=== PATIENT | male | born 1970 | race Caucasian/White ===

== ENCOUNTER 2018-05-11 08:12 | Inpatient (IN) | payer BC, OTHER ==
[2018-05-11] VITALS (17 sets, daily range): BP systolic 103–140; BP diastolic 55–79
[~2018-05-11] VITALS: Ht 170.2 cm; Wt 72.4 kg
[2018-05-11] MEDS ORDERED: FUROSEMIDE 20 MG/2 ML VIAL ONE (08:18)
[2018-05-11] MEDS ORDERED: methylPREDNISolone SOD SUCC 125 MG/2 ML VL ONE (08:22)
[2018-05-11] MEDS ORDERED: methylPREDNISolone SOD SUCC 125 MG/2 ML VL IV ONE (08:30)
[2018-05-11] MEDS ORDERED: FUROSEMIDE 20 MG/2 ML VIAL IV ONE (08:30)
[2018-05-11] MEDS ORDERED: AZITHROMYCIN 500MG/ 250ML 250 ML IV ONE (09:00)
[2018-05-11] MEDS ORDERED: cefTRIAXone 1GM/10ml IVPUSH 10 ML IV ONE (09:00)
[2018-05-11 09:38] LABS: Basophils # (auto) 0 uL; Eosinophils # (auto) 0 uL; Eosinophils % (auto) 0.1 % (0.0-7.0); Hemoglobin 11.5 g/dL (13.5-17.5); Lymphocytes # (auto) 0.2 uL; Lymphocytes % (auto) 1.2 % (10.0-50.0); Mean Corpuscular Hemoglobin 31.8 pg (28.0-32.0); Mean Corpuscular Volume 99.4 fL (80.0-100.0); Monocytes # (auto) 0.8 uL; Monocytes % (auto) 5.6 % (0.0-12.0); Neutrophils # (auto) 13.2 uL; Neutrophils % (auto) 93.1 % (37.0-80.0); Platelet Count (auto) 304 10^3/uL (140-450); Red Blood Cells 3.62 10^6/uL (4.5-5.90); Red Cell Distribution Width 17.7 % (11.8-14.3); White Blood Cell 14.1 10^3/uL (4.4-10.8)
[2018-05-11 10:00] LABS: Albumin 2.4 g/dL (3.4-5.0); BUN/Creatinine Ratio 42.4; Calcium 7.7 mg/dL (8.5-10.1); Magnesium 2.4 mg/dL (1.6-2.6); Potassium 4.8 mmol/L (3.5-5.1)
[2018-05-11 10:05] LABS: Urine Bacteria NONE SEEN /hpf (None Seen); Urine Blood Negative /uL (Negative); Urine Hyaline Cast FEW /lpf (0 - 2); Urine Mucus FEW (None Seen); Urine Specific Gravity 1.015 (1.001-1.035); Urine WBC 2 /hpf (0 - 3)
[2018-05-11 10:16] LABS: Bilirubin, Total 0.5 mg/dL (0.2-1.0); Total Protein 6.1 g/dL (6.4-8.2)
[2018-05-11] MEDS ORDERED: NITROGLYCERIN 0.4 MG SL TAB SL PRN (10:45)
[2018-05-11] MEDS ORDERED: VANCOMYCIN PER PHARMACY 0 MG IV SCH (10:45)
[2018-05-11] MEDS ORDERED: ACETAMINOPHEN 500 MG TAB PO PRN (10:45)
[2018-05-11] MEDS ORDERED: DEXTROSE (50%) 50ML SYRG IV PRN (10:45)
[2018-05-11] MEDS ORDERED: LORazepam 0.5 MG TAB PO PRN (10:45)
[2018-05-11] MEDS ORDERED: LACTULOSE 20Gm/30ML SOLN PO PRN (10:45)
[2018-05-11] MEDS ORDERED: ONDANSETRON HCL 4 MG/2 ML VIAL IV PRN (10:45)
[2018-05-11] MEDS ORDERED: HYDROcodone-ACET 5/325MG TAB PO PRN (10:45)
[2018-05-11] MEDS ORDERED: TEMAZEPAM 15 MG CAP PO PRN (10:45)
[2018-05-11] MEDS ORDERED: MORPHINE SULFATE 4 MG/ML SYR/VIAL IV PRN ×2 (10:45)
[2018-05-11] MEDS ORDERED: PIPERACILLIN-TAZOB 3.375GM 100 ML IV ONE (10:45)
[2018-05-11] MEDS: OSELTAMIVIR 75 MG CAP PO SCH ×2 (11:38→22:00)
[2018-05-11] MEDS ORDERED: VANCOMYCIN 1GM/250ML 250 ML IV ONE ×2 (12:00→12:37)
[2018-05-11] MEDS: IPRATROPIUM BROM 0.5 MG/2.5ML INH SOL NEB SCH ×2 (12:06→18:12)
[2018-05-11] MEDS: ALBUTEROL SULF 2.5 MG/0.5ML(0.5%) NEB SOLN NEB SCH ×2 (12:07→18:12)
[2018-05-11] MEDS: ACCU-CHEK COMFORT CURVE STRIP VI SCH ×2 (13:01→18:29)
[2018-05-11] MEDS: ALBUTEROL SULF 2.5 MG/0.5ML(0.5%) NEB SOLN NEB PRN (14:47)
[2018-05-11] MEDS: ENOXAPARIN SOD 60 MG/0.6 ML SYRINGE SC SCH (14:58)
[2018-05-11] MEDS ORDERED: methylPREDNISolone SOD SUCC 40 MG/ML VL IV ONE (15:00)
[2018-05-11] MEDS ORDERED: IOHEXOL 350 MG/ML 100ML IJ ONE (16:43)
[2018-05-11] MEDS: PIPERACILLIN-TAZOB 3.375GM 100 ML IV SCH (16:56)
[2018-05-11] MEDS ORDERED: ETOMIDATE (2MG/ML) 20ML VIAL IV ONE ×2 (19:06→20:00)
[2018-05-11] MEDS ORDERED: SUCCINYLCHOLINE CHLORIDE 20 MG/ML 10ML VIAL IV ONE ×2 (19:06→20:00)
[2018-05-11] MEDS ORDERED: MIDAZOLAM DRIP 50 mg/50mL 50 ML IV ONE (19:28)
[2018-05-11] MEDS: MIDAZOLAM DRIP 50 mg/50mL 50 ML IV SCH ×3 (19:30→22:17)
[2018-05-11] MEDS ORDERED: fentaNYL Drip 2500mCg/250mlNS 250 ML IV ONE (19:41)
[2018-05-11] MEDS: fentaNYL Drip 2500mCg/250mlNS 250 ML IV SCH ×2 (19:44→19:54)
[2018-05-11] MEDS ORDERED: PROPOFOL 100 ML IV ONE (19:59)
[2018-05-11] MEDS: PROPOFOL 100 ML IV SCH (20:27)
[2018-05-11] MEDS: GABAPENTIN 100 MG CAP PO SCH (22:00)
[2018-05-11] MEDS: methylPREDNISolone SOD SUCC 40 MG/ML VL IV SCH (22:56)
[2018-05-11] MEDS: VANCOMYCIN 1GM/250ML 250 ML IV SCH (22:56)
[2018-05-12] VITALS (106 sets, daily range): BP systolic 85–123; BP diastolic 45–72
[2018-05-12] MEDS: ALBUTEROL SULF 2.5 MG/0.5ML(0.5%) NEB SOLN NEB SCH ×4 (00:22→18:18)
[2018-05-12] MEDS: IPRATROPIUM BROM 0.5 MG/2.5ML INH SOL NEB SCH ×4 (00:22→18:18)
[2018-05-12 01:03] LABS: Basophils # (auto) 0 uL; Eosinophils # (auto) 0 uL; Hematocrit 28.6 % (41.0-53.0); Hemoglobin 9.5 g/dL (13.5-17.5); Lymphocytes # (auto) 0.1 uL; Lymphocytes % (auto) 1.5 % (10.0-50.0); Mean Corpuscular Hemoglobin 32.5 pg (28.0-32.0); Mean Corpuscular Hgb Conc. 33.1 g/dL (32.0-36.0); Mean Corpuscular Volume 98.2 fL (80.0-100.0); Monocytes # (auto) 0.4 uL; Monocytes % (auto) 4.9 % (0.0-12.0); Neutrophils # (auto) 7.7 uL; Neutrophils % (auto) 93.6 % (37.0-80.0); Platelet Count (auto) 255 10^3/uL (140-450); Red Blood Cells 2.91 10^6/uL (4.5-5.90); Red Cell Distribution Width 17.6 % (11.8-14.3); White Blood Cell 8.2 10^3/uL (4.4-10.8)
[2018-05-12 01:18] LABS: Calcium 6.7 mg/dL (8.5-10.1); Potassium 4.9 mmol/L (3.5-5.1)
[2018-05-12 01:20] LABS: BUN/Creatinine Ratio 54.8
[2018-05-12 01:23] LABS: Bilirubin, Total 0.4 mg/dL (0.2-1.0); Total Protein 4.7 g/dL (6.4-8.2)
[2018-05-12] MEDS ORDERED: BENZ1CAP24 PO (01:33)
[2018-05-12] MEDS ORDERED: GAB100C PO (01:33)
[2018-05-12] MEDS ORDERED: LIDO1PAD55 TOP (01:33)
[2018-05-12] MEDS: ACCU-CHEK COMFORT CURVE STRIP VI SCH ×4 (02:00→18:00)
[2018-05-12] MEDS: PROPOFOL 100 ML IV SCH ×4 (02:18→22:37)
[2018-05-12] MEDS: ENOXAPARIN SOD 60 MG/0.6 ML SYRINGE SC SCH ×3 (02:20→22:21)
[2018-05-12] MEDS: MIDAZOLAM DRIP 50 mg/50mL 50 ML IV SCH ×6 (02:20→23:22)
[2018-05-12] MEDS: PIPERACILLIN-TAZOB 3.375GM 100 ML IV SCH ×5 (02:20→22:47)
[2018-05-12] MEDS: GABAPENTIN 100 MG CAP PO SCH ×3 (06:00→22:22)
[2018-05-12] MEDS: VANCOMYCIN 1GM/250ML 250 ML IV SCH ×2 (08:19→17:52)
[2018-05-12] MEDS: methylPREDNISolone SOD SUCC 40 MG/ML VL IV SCH ×2 (09:36→22:21)
[2018-05-12] MEDS: AZITHROMYCIN 500MG/ 250ML 250 ML IV SCH (09:37)
[2018-05-12] MEDS ORDERED: PANTOPRAZOLE 40 MG TAB PO SCH (10:00)
[2018-05-12] MEDS: PANTOPRAZOLE 40 MG/10 ML VIAL IV SCH (12:54)
[2018-05-12] MEDS: fentaNYL Drip 2500mCg/250mlNS 250 ML IV SCH (18:48)
[2018-05-13] VITALS (106 sets, daily range): BP systolic 99–163; BP diastolic 60–98
[2018-05-13] MEDS: IPRATROPIUM BROM 0.5 MG/2.5ML INH SOL NEB SCH ×5 (00:06→23:44)
[2018-05-13] MEDS: ALBUTEROL SULF 2.5 MG/0.5ML(0.5%) NEB SOLN NEB SCH ×5 (00:06→23:44)
[2018-05-13] MEDS: ACCU-CHEK COMFORT CURVE STRIP VI SCH ×5 (01:08→23:49)
[2018-05-13] MEDS: VANCOMYCIN 1GM/250ML 250 ML IV SCH ×3 (03:04→18:16)
[2018-05-13] MEDS: MIDAZOLAM DRIP 50 mg/50mL 50 ML IV SCH ×5 (03:52→21:21)
[2018-05-13 04:36] LABS: Basophils # (auto) 0 uL; Eosinophils # (auto) 0 uL; Eosinophils % (auto) 0.1 % (0.0-7.0); Hematocrit 28.2 % (41.0-53.0); Hemoglobin 9.4 g/dL (13.5-17.5); Lymphocytes # (auto) 0.1 uL; Lymphocytes % (auto) 1.2 % (10.0-50.0); Mean Corpuscular Hemoglobin 32.7 pg (28.0-32.0); Mean Corpuscular Hgb Conc. 33.4 g/dL (32.0-36.0); Mean Corpuscular Volume 98.1 fL (80.0-100.0); Monocytes # (auto) 0.5 uL; Monocytes % (auto) 6.7 % (0.0-12.0); Neutrophils # (auto) 7.5 uL; Nucleated Red Blood Cells % 0.1 %; Platelet Count (auto) 274 10^3/uL (140-450); Red Blood Cells 2.87 10^6/uL (4.5-5.90); Red Cell Distribution Width 17.5 % (11.8-14.3); White Blood Cell 8.2 10^3/uL (4.4-10.8)
[2018-05-13 04:37] LABS: Anion Gap 8 (5-15); Blood Urea Nitrogen 26 mg/dL (7-18); Carbon Dioxide 29 mmol/L (21-32); Chloride 97 mmol/L (98-107); Glucose 174 mg/dL (74-106); Potassium 5.4 mmol/L (3.5-5.1); Sodium 134 mmol/L (136-145)
[2018-05-13 04:39] LABS: GFR African American 218 mL/min; GFR Non-African American 180 mL/min
[2018-05-13] MEDS: PIPERACILLIN-TAZOB 3.375GM 100 ML IV SCH ×4 (04:57→22:49)
[2018-05-13] MEDS: GABAPENTIN 100 MG CAP PO SCH ×3 (05:48→22:49)
[2018-05-13] MEDS: fentaNYL Drip 2500mCg/250mlNS 250 ML IV SCH ×2 (07:32→18:22)
[2018-05-13] MEDS: PROPOFOL 100 ML IV SCH (07:32)
[2018-05-13] MEDS ORDERED: CALCIUM CHL 100MG/ML 1,000 MG in D5W 5% 100 ML IV ONE (07:45)
[2018-05-13] MEDS ORDERED: SODIUM POLYSTYRENE SULF 15GM/60ML SUSP PO ONE (07:45)
[2018-05-13] MEDS: D5W/SOD CHLO 0.9% 1,000 ML IV SCH ×2 (08:33→17:30)
[2018-05-13] MEDS: AZITHROMYCIN 500MG/ 250ML 250 ML IV SCH (09:42)
[2018-05-13] MEDS: methylPREDNISolone SOD SUCC 40 MG/ML VL IV SCH ×2 (09:42→22:49)
[2018-05-13] MEDS: PANTOPRAZOLE 40 MG/10 ML VIAL IV SCH (09:42)
[2018-05-13] MEDS: ENOXAPARIN SOD 60 MG/0.6 ML SYRINGE SC SCH ×2 (10:00→23:39)
[2018-05-13 10:31] LABS: INR 0.97 (0.9-1.15); Prothrombin Time 10.4 sec (9.27-12.13)
[2018-05-13] MEDS ORDERED: DEXTROSE (50%) 50ML SYRG IV PRN (20:00)
[2018-05-14] VITALS (107 sets, daily range): BP systolic 101–161; BP diastolic 44–118
[2018-05-14] MEDS: D5W/SOD CHLO 0.9% 1,000 ML IV SCH ×3 (00:23→23:30)
[2018-05-14] MEDS: InsuLIN REG 1unit/0.01ml Soln (100units/ml) SC SCH ×4 (00:23→18:00)
[2018-05-14] MEDS: ALBUTEROL SULF 2.5 MG/0.5ML(0.5%) NEB SOLN NEB PRN (02:10)
[2018-05-14] MEDS: VANCOMYCIN 1GM/250ML 250 ML IV SCH ×3 (02:29→17:46)
[2018-05-14] MEDS: MIDAZOLAM DRIP 50 mg/50mL 50 ML IV SCH ×6 (02:30→22:29)
[2018-05-14 04:21] LABS: Hematocrit 28.8 % (41.0-53.0); Hemoglobin 9.5 g/dL (13.5-17.5); Mean Corpuscular Hemoglobin 32.6 pg (28.0-32.0); Mean Corpuscular Volume 98.7 fL (80.0-100.0); Platelet Count (auto) 265 10^3/uL (140-450); Red Blood Cells 2.92 10^6/uL (4.5-5.90); Red Cell Distribution Width 17.9 % (11.8-14.3); White Blood Cell 10.5 10^3/uL (4.4-10.8)
[2018-05-14 04:26] LABS: Band Neutrophils % (manual) 0; Basophils % (manual) 0 (0.0-2.0); Blast Cells 0; Eosinophils % (manual) 0 (0-7); Metamyelocytes % 0; Myelocytes % 0; Promyelocytes % 0; Reactive Lymphocytes 0
[2018-05-14 04:37] LABS: Calcium 6.8 mg/dL (8.5-10.1); Potassium 4.2 mmol/L (3.5-5.1)
[2018-05-14 04:40] LABS: BUN/Creatinine Ratio 42.9
[2018-05-14 05:03] LABS: Lymphocytes % (manual) 1 (10.0-50.0); Monocytes % (manual) 4 (0-12)
[2018-05-14] MEDS: PIPERACILLIN-TAZOB 3.375GM 100 ML IV SCH ×4 (05:38→22:38)
[2018-05-14] MEDS: GABAPENTIN 100 MG CAP PO SCH ×3 (05:38→21:28)
[2018-05-14] MEDS: ACCU-CHEK COMFORT CURVE STRIP VI SCH ×5 (06:00→17:48)
[2018-05-14] MEDS: fentaNYL Drip 2500mCg/250mlNS 250 ML IV SCH ×2 (06:24→17:47)
[2018-05-14] MEDS: IPRATROPIUM BROM 0.5 MG/2.5ML INH SOL NEB SCH ×3 (06:31→18:31)
[2018-05-14] MEDS: ALBUTEROL SULF 2.5 MG/0.5ML(0.5%) NEB SOLN NEB SCH ×3 (06:31→18:31)
[2018-05-14] MEDS ORDERED: LIDOCAINE 2% (LOCAL ANESTH.) PF 5ml SDV ONE (08:26)
[2018-05-14] MEDS: ENOXAPARIN SOD 60 MG/0.6 ML SYRINGE SC SCH ×2 (09:48→21:27)
[2018-05-14] MEDS: PANTOPRAZOLE 40 MG/10 ML VIAL IV SCH (09:48)
[2018-05-14] MEDS: methylPREDNISolone SOD SUCC 40 MG/ML VL IV SCH ×2 (09:48→21:27)
[2018-05-14] MEDS: AZITHROMYCIN 500MG/ 250ML 250 ML IV SCH (11:01)
[2018-05-14] MEDS: PROPOFOL 100 ML IV SCH (15:32)
[2018-05-14] MEDS ORDERED: Jevity 1.2 Cal/Fiber 1 Liter GT SCH (16:45)
[2018-05-15] VITALS (106 sets, daily range): BP systolic 77–173; BP diastolic 50–117
[2018-05-15] MEDS: ALBUTEROL SULF 2.5 MG/0.5ML(0.5%) NEB SOLN NEB SCH ×4 (00:11→19:10)
[2018-05-15] MEDS: IPRATROPIUM BROM 0.5 MG/2.5ML INH SOL NEB SCH ×4 (00:11→19:10)
[2018-05-15] MEDS: ACCU-CHEK COMFORT CURVE STRIP VI SCH ×4 (00:14→18:00)
[2018-05-15] MEDS: InsuLIN REG 1unit/0.01ml Soln (100units/ml) SC SCH ×4 (00:14→18:00)
[2018-05-15] MEDS: VANCOMYCIN 1GM/250ML 250 ML IV SCH ×3 (01:45→17:29)
[2018-05-15] MEDS: MIDAZOLAM DRIP 50 mg/50mL 50 ML IV SCH ×4 (01:46→22:34)
[2018-05-15] MEDS: PROPOFOL 100 ML IV SCH ×2 (01:59→10:08)
[2018-05-15] MEDS: D5W/SOD CHLO 0.9% 1,000 ML IV SCH (02:00)
[2018-05-15 04:15] LABS: Basophils # (auto) 0 uL; Eosinophils # (auto) 0 uL; Hematocrit 28.2 % (41.0-53.0); Hemoglobin 9.5 g/dL (13.5-17.5); Lymphocytes # (auto) 0.1 uL; Lymphocytes % (auto) 1.5 % (10.0-50.0); Mean Corpuscular Hgb Conc. 33.7 g/dL (32.0-36.0); Monocytes # (auto) 0.6 uL; Monocytes % (auto) 7.3 % (0.0-12.0); Neutrophils # (auto) 7.4 uL; Neutrophils % (auto) 91.2 % (37.0-80.0); Platelet Count (auto) 237 10^3/uL (140-450); Red Blood Cells 2.87 10^6/uL (4.5-5.90); White Blood Cell 8.1 10^3/uL (4.4-10.8)
[2018-05-15 04:30] LABS: BUN/Creatinine Ratio 25.6; Calcium 6.3 mg/dL (8.5-10.1); Potassium 3.9 mmol/L (3.5-5.1)
[2018-05-15] MEDS: PIPERACILLIN-TAZOB 3.375GM 100 ML IV SCH ×4 (05:00→22:34)
[2018-05-15] MEDS: GABAPENTIN 100 MG CAP PO SCH ×3 (06:33→21:30)
[2018-05-15] MEDS ORDERED: CALCIUM CHL 100MG/ML 1,000 MG in D5W 5% 100 ML IV ONE (08:30)
[2018-05-15] MEDS ORDERED: IOHEXOL 350 MG/ML 100ML IJ ONE (09:12)
[2018-05-15] MEDS: PANTOPRAZOLE 40 MG/10 ML VIAL IV SCH (10:43)
[2018-05-15] MEDS: ENOXAPARIN SOD 60 MG/0.6 ML SYRINGE SC SCH ×2 (10:43→21:30)
[2018-05-15] MEDS: AZITHROMYCIN 500MG/ 250ML 250 ML IV SCH (10:59)
[2018-05-15] MEDS: methylPREDNISolone SOD SUCC 40 MG/ML VL IV SCH ×2 (10:59→21:30)
[2018-05-15] MEDS ORDERED: FUROSEMIDE 40 MG/4 ML VIAL IV ONE (15:15)
[2018-05-15] MEDS: fentaNYL Drip 2500mCg/250mlNS 250 ML IV SCH (17:11)
[2018-05-16] VITALS (104 sets, daily range): BP systolic 83–172; BP diastolic 45–115
[2018-05-16] MEDS: IPRATROPIUM BROM 0.5 MG/2.5ML INH SOL NEB SCH ×4 (00:11→18:08)
[2018-05-16] MEDS: ALBUTEROL SULF 2.5 MG/0.5ML(0.5%) NEB SOLN NEB SCH ×4 (00:11→18:08)
[2018-05-16] MEDS: PROPOFOL 100 ML IV SCH (01:00)
[2018-05-16] MEDS: VANCOMYCIN 1GM/250ML 250 ML IV SCH ×3 (01:31→17:35)
[2018-05-16] MEDS: MIDAZOLAM DRIP 50 mg/50mL 50 ML IV SCH ×4 (03:57→21:53)
[2018-05-16] MEDS: fentaNYL Drip 2500mCg/250mlNS 250 ML IV SCH ×2 (03:57→16:50)
[2018-05-16 04:02] LABS: Basophils # (auto) 0 uL; Eosinophils # (auto) 0 uL; Eosinophils % (auto) 0.1 % (0.0-7.0); Hematocrit 25.3 % (41.0-53.0); Hemoglobin 8.5 g/dL (13.5-17.5); Lymphocytes # (auto) 0.1 uL; Mean Corpuscular Hemoglobin 32.6 pg (28.0-32.0); Mean Corpuscular Hgb Conc. 33.6 g/dL (32.0-36.0); Mean Corpuscular Volume 97.3 fL (80.0-100.0); Monocytes # (auto) 0.4 uL; Monocytes % (auto) 6.9 % (0.0-12.0); Neutrophils # (auto) 5.5 uL; Nucleated Red Blood Cells % 0.1 %; Platelet Count (auto) 217 10^3/uL (140-450); Red Cell Distribution Width 17.3 % (11.8-14.3); White Blood Cell 6.1 10^3/uL (4.4-10.8)
[2018-05-16 04:27] LABS: Calcium 6.6 mg/dL (8.5-10.1); Potassium 4.1 mmol/L (3.5-5.1)
[2018-05-16 04:29] LABS: BUN/Creatinine Ratio 32.4
[2018-05-16] MEDS: PIPERACILLIN-TAZOB 3.375GM 100 ML IV SCH ×4 (05:10→23:00)
[2018-05-16] MEDS: InsuLIN REG 1unit/0.01ml Soln (100units/ml) SC SCH ×4 (05:25→17:35)
[2018-05-16] MEDS: ACCU-CHEK COMFORT CURVE STRIP VI SCH ×4 (05:25→17:36)
[2018-05-16] MEDS: GABAPENTIN 100 MG CAP PO SCH ×3 (05:25→21:51)
[2018-05-16] MEDS ORDERED: ALBUMIN 25% 100 ML IV ONE (07:00)
[2018-05-16] MEDS ORDERED: ALBUMIN 25% 100 ML IV SCH (07:45)
[2018-05-16] MEDS: D5W/SOD CHLO 0.9% 1,000 ML IV SCH ×2 (08:15→21:05)
[2018-05-16] MEDS: ALBUMIN 25% 100 ML IV SCH ×3 (08:50→21:00)
[2018-05-16] MEDS: PANTOPRAZOLE 40 MG/10 ML VIAL IV SCH (09:54)
[2018-05-16] MEDS: ENOXAPARIN SOD 60 MG/0.6 ML SYRINGE SC SCH ×2 (09:54→21:51)
[2018-05-16] MEDS: methylPREDNISolone SOD SUCC 40 MG/ML VL IV SCH ×2 (09:54→21:51)
[2018-05-16] MEDS: AZITHROMYCIN 500MG/ 250ML 250 ML IV SCH ×2 (09:55→11:23)
[2018-05-16] MEDS ORDERED: EPINEPHrine HCL 1 MG/10 ML SYRG IV ONE (12:24)
[2018-05-17] VITALS (80 sets, daily range): BP systolic 106–154; BP diastolic 58–82
[2018-05-17] MEDS: IPRATROPIUM BROM 0.5 MG/2.5ML INH SOL NEB SCH ×3 (00:25→12:17)
[2018-05-17] MEDS: ALBUTEROL SULF 2.5 MG/0.5ML(0.5%) NEB SOLN NEB SCH ×3 (00:25→12:17)
[2018-05-17] MEDS: VANCOMYCIN 1GM/250ML 250 ML IV SCH ×3 (02:05→16:04)
[2018-05-17] MEDS: ALBUMIN 25% 100 ML IV SCH (03:00)
[2018-05-17 04:14] LABS: Basophils # (auto) 0 uL; Eosinophils # (auto) 0 uL; Eosinophils % (auto) 0.1 % (0.0-7.0); Lymphocytes # (auto) 0.2 uL; Monocytes # (auto) 0.5 uL
[2018-05-17 04:17] LABS: Hematocrit 21.7 % (41.0-53.0); Lymphocytes % (auto) 3.1 % (10.0-50.0); Mean Corpuscular Hemoglobin 32.6 pg (28.0-32.0); Mean Corpuscular Hgb Conc. 33.3 g/dL (32.0-36.0); Mean Corpuscular Volume 97.9 fL (80.0-100.0); Monocytes % (auto) 8.4 % (0.0-12.0); Neutrophils # (auto) 4.8 uL; Neutrophils % (auto) 88.4 % (37.0-80.0); Red Blood Cells 2.21 10^6/uL (4.5-5.90); Red Cell Distribution Width 17.9 % (11.8-14.3); White Blood Cell 5.4 10^3/uL (4.4-10.8)
[2018-05-17 04:19] LABS: Hemoglobin 7.4 g/dL (13.5-17.5); Platelet Count (auto) 193 10^3/uL (140-450)
[2018-05-17 04:35] LABS: Potassium 3.7 mmol/L (3.5-5.1)
[2018-05-17 04:42] LABS: BUN/Creatinine Ratio 32.4; Calcium 6.6 mg/dL (8.5-10.1)
[2018-05-17] MEDS: PIPERACILLIN-TAZOB 3.375GM 100 ML IV SCH ×3 (05:25→16:04)
[2018-05-17] MEDS: fentaNYL Drip 2500mCg/250mlNS 250 ML IV SCH ×2 (05:26→16:05)
[2018-05-17] MEDS: ACCU-CHEK COMFORT CURVE STRIP VI SCH ×4 (05:26→16:04)
[2018-05-17] MEDS: GABAPENTIN 100 MG CAP PO SCH ×2 (05:26→14:00)
[2018-05-17] MEDS: MIDAZOLAM DRIP 50 mg/50mL 50 ML IV SCH ×3 (05:27→13:16)
[2018-05-17] MEDS: PROPOFOL 100 ML IV SCH ×2 (05:48→13:14)
[2018-05-17] MEDS: InsuLIN REG 1unit/0.01ml Soln (100units/ml) SC SCH ×4 (06:00→16:04)
[2018-05-17] MEDS: ENOXAPARIN SOD 60 MG/0.6 ML SYRINGE SC SCH (10:02)
[2018-05-17] MEDS: methylPREDNISolone SOD SUCC 40 MG/ML VL IV SCH (10:02)
[2018-05-17] MEDS: PANTOPRAZOLE 40 MG/10 ML VIAL IV SCH (10:03)
[2018-05-17] MEDS: D5W/SOD CHLO 0.9% 1,000 ML IV SCH (10:03)
[2018-05-17] MEDS ORDERED: FLUCONAZOLE 200MG/100ML 100 ML IV ONE ×2 (11:45→13:00)
[2018-05-17] MEDS ORDERED: MORPHINE SULFATE 100 MG in D5W 5% 90 ML IV SCH (15:23)
[2018-05-17] MEDS: MORPHINE SULFATE 4 MG/ML SYR/VIAL IV PRN ×2 (16:05→18:32)
[2018-05-18] MEDS ORDERED: FLUCONAZOLE 200MG/100ML 100 ML IV SCH ×2 (10:00)
== END 2018-05-17 23:54 | disposition expired | DRG 870 ==
LOC: EDBD 08:12 → ER 08:12 → OVERFLOW 08:13 → ICU WEST 20:41
PROVIDERS: ADMIT Internal Medicine; ATTEND Internal Medicine
PROC: 5A1955Z Respiratory Ventilation, Greater than 96 Consecutive Hours (ICD-10-PCS; 2018-05-11)
PROC: 0BH17EZ Insertion of Endotracheal Airway into Trachea, Via Natural or Artificial Opening (ICD-10-PCS; 2018-05-11)
PROC: 5A09357 Assistance with Respiratory Ventilation, Less than 24 Consecutive Hours, Continuous Positive Airway Pressure (ICD-10-PCS; 2018-05-11)
PROC: 06HM33Z Insertion of Infusion Device into Right Femoral Vein, Percutaneous Approach (ICD-10-PCS; principal; 2018-05-14)
PROC: B54BZZA Ultrasonography of Right Lower Extremity Veins, Guidance (ICD-10-PCS; 2018-05-14)
PROC: 0W9B30Z Drainage of Left Pleural Cavity with Drainage Device, Percutaneous Approach (ICD-10-PCS; 2018-05-14)
PROC: 5A12012 Performance of Cardiac Output, Single, Manual (ICD-10-PCS; 2018-05-16)
DX: A41.9 Sepsis, unspecified organism (principal); E43 Unspecified severe protein-calorie malnutrition; J18.9 Pneumonia, unspecified organism; J96.21 Acute and chronic respiratory failure with hypoxia; J96.22 Acute and chronic respiratory failure with hypercapnia; C34.90 Malignant neoplasm of unspecified part of unspecified bronchus or lung; C78.7 Secondary malignant neoplasm of liver and intrahepatic bile duct; I82.503 Chronic embolism and thrombosis of unspecified deep veins of lower extremity, bilateral; J44.0 Chronic obstructive pulmonary disease with (acute) lower respiratory infection; J93.9 Pneumothorax, unspecified; N45.4 Abscess of epididymis or testis; D64.9 Anemia, unspecified; I46.9 Cardiac arrest, cause unspecified; R65.20 Severe sepsis without septic shock; Z51.5 Encounter for palliative care; Z66 Do not resuscitate; E83.51 Hypocalcemia; E87.5 Hyperkalemia; Z80.0 Family history of malignant neoplasm of digestive organs; Z85.118 Personal history of other malignant neoplasm of bronchus and lung; Z87.891 Personal history of nicotine dependence; Z68.25 Body mass index [BMI] 25.0-25.9, adult
CPT/HCPCS: 31500; 36415; 36600; 71045; 71275; 76942; 80048; 80053; 80202; 81001; 82805; 82962; 83036; 83605; 83735; 83880; 84100; 84484; 85007; 85025; 85027; 85610; 87040; 87070; 87081; 87205; 87804; 93005; 93970; 94002; 94003; 94640; 94660; 96365; 96366; 96368; 96372; 96375; 99291; A6257; C9113; J0330; J0696; J1450; J1815; J2001; J2250; J2543; J2704; J7042; J7060; P9047